=== PATIENT | female | born 1970 | race Caucasian/White ===

== ENCOUNTER 2019-07-24 08:25 | Day surgery (SDC) | payer OTHER ==
--- NOTE | 2019-07-24 07:55 | HP ---
DATE OF SURGERY: 07/24/2019 HISTORY OF PRESENT ILLNESS: This is a 49 year-old with no prior colonoscopy. No pain. No change in bowel movements. No bloody stools. Family history negative for colon cancer. She is in need of screening colonoscopy. PAST MEDICAL HISTORY: Hypothyroidism. PAST SURGICAL HISTORY: Tubal ligation in the past. MEDICATIONS: Levothyroxine. ALLERGIES: NKDA. FAMILY HISTORY: Hypertension. SOCIAL HISTORY: No smoking or alcohol abuse. REVIEW OF SYSTEMS: Fourteen systems reviewed. No chest pain or palpitations other systems negative or noncontributory as above and per preadmission questionnaire. PHYSICAL EXAMINATION: GENERAL: No acute distress. HEENT: Sclerae nonicteric. NECK: No JVD. CHEST: Equal excursion, nonlabored breathing. CVS: Regular rate and rhythm. ABDOMEN: Soft. No peritoneal signs. EXTREMITIES: No significant edema. NEURO: Alert, oriented, moving extremities symmetrically. No gross motor deficits noted. RECTAL: Deferred timed to endoscopy exam. IMPRESSION: Need for screening colonoscopy. I feel she is a candidate. Risks and benefits explained in detail but not limited to bleeding or infection, risk of bowel injury or perforation possibly requiring open procedure, risk of missed or nondiagnosis or incomplete exam possibly requiring barium enema, other studies or procedures, general risk of anesthesia or sedation, risk of bowel prep but not limited to. She understands and agrees to the planned procedure, will proceed with outpatient screening colonoscopy.
[2019-07-24] MEDS: Lactated Ringers 1,000 ML IV SCH (08:32)
[2019-07-24] MEDS ORDERED: DIPRIVAN 200 MG/20 ML IV ONE ×2 (10:14→10:27)
[2019-07-24] MEDS ORDERED: Versed 2 MG/2 ML Injection ONE (10:15)
[2019-07-24] MEDS ORDERED: Lactated Ringers 1,000 ML IV ONE (10:49)
[2019-07-24 11:24] VITALS: O2SAT 100
[2019-07-24 12:11] VITALS: BP 130/74; PULSE 74
--- NOTE | 2019-07-24 14:32 | OP ---
SURGERY DATE/TIME: 07/24/2019 1018 PREOPERATIVE DIAGNOSIS: Need for screening colonoscopy. POSTOPERATIVE DIAGNOSES: 1) Small sigmoid colon polyp. 2) Fair prep. 3) Pancolonic diverticulosis. PROCEDURES: 1) Colonoscopy to cecum. 2) Hot biopsy removal of small sigmoid colon early polyp versus hyperplastic lesion. SURGEON: Dr. Froylan Martinez. ANESTHESIA: MAC. ESTIMATED BLOOD LOSS: Minimal. INDICATIONS: As noted above. Risks and benefits explained in detail but not limited to and consent obtained. DESCRIPTION OF PROCEDURE AND FINDINGS: The patient is taken to the operating room. MAC anesthesia introduced. After official time out and no disagreement with planned procedure, digital rectal exam did not reveal any rectal masses. Video colonoscope inserted and passed up through the slightly tortuous sigmoid, descending, transverse and ascending colon. Eventually positioned on her back, external pressure the scope was able to be passed around to the cecum. Appendiceal orifice and valve well visualized. Prep overall was fair. There was a little bit of liquidy stool suction irrigated as well as clear as possible just slightly limiting the exam for tiny lesions. The scope is slowly and carefully withdrawn over the next 8 minutes. She did have some pancolonic diverticulosis. No signs of any large polyps, masses or obstructing lesions. There were a small early polyp removed with hot biopsy forceps in the sigmoid colon area. Good hemostasis noted. Otherwise the scope pulled back. She had minimal internal hemorrhoid. It was felt to be insignificant. No signs of any large polyps, masses or obstructing lesions. The patient tolerated the procedure well. There were no immediate complications. I will see her back in the office in the next week or two to go over the results and decide on ultimate follow up down the road.
== END 2019-07-24 11:58 | disposition home or self-care (01) ==
LOC: SDC 08:25
PROVIDERS: ATTEND Surgery
DX: Z12.11 Encounter for screening for malignant neoplasm of colon (principal); K63.5 Polyp of colon; K57.30 Diverticulosis of large intestine without perforation or abscess without bleeding
CPT/HCPCS: 88305; J2250; J2704